=== PATIENT | male | born 1995 | race Caucasian/White ===

== ENCOUNTER 2018-07-02 14:46 | Emergency (ER) | payer SELFPAY ==
[2018-07-02 14:57] VITALS: BP 136/90; PULSE 90; RESP 14; TEMP 36.8; O2SAT 99
--- NOTE | 2018-07-02 15:12 | ED.ALLEREA ---
HPI - Allergic Reaction <CORIN Sykes Last Filed: 07/02/18 19:57> General Chief complaint: Allergic Reaction Stated complaint: hives all over body Time Seen by Provider: 07/02/18 15:12 Source: patient Mode of arrival: ambulatory Limitations: no limitations History of Present Illness HPI narrative: This 22-year-old male comes in due to recurrent hives for the last 3 or 4 days, not acutely worse today. He states that this is the 2nd time he has had this in about a month. Has been trying to make do with taking Benadryl, but states this is quite uncomfortable. 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 He is also allergic to for and exposed to a friend's dog recently, or states that it could be stress. He states that this started on his cheeks and hands 1st, and spread to the rest of his face, also has some on his arms. He states he does not have any rash on his trunk, groin or legs. He has an old rash on the left foot that has been there for years, unchanged. He does have a history of some mild reactive airways only when he is ill, but states he has not had any wheeze, dyspnea or chest tightness, maybe occasional mild feeling of air hunger that he thinks is due to Benadryl. He also states that the Benadryl makes him sleepy during the day. He states that the rash pierce at times as well as itches. He has not had any swelling in his lips or difficulty swallowing. Denies any other complaints on systems review Related Data Previous Rx's Medication Instructions Recorded prednisone 40 mg PO DAILY 21 Days #25 tab 07/02/18 Review of Systems <CORIN Sykes Last Filed: 07/02/18 19:57> Review of Systems All systems reviewed & are unremarkable except as noted in HPI and below PFSH <Peggy Pruitt PA-C - Last Filed: 07/02/18 19:57> Comment: Exam <CORIN Sykes Last Filed: 07/02/18 19:57> Narrative Exam Narrative: GENERAL APPEARANCE: Patient sitting comfortably, in no distress. EYES: PERRL, EOMI. ORAL CAVITY: Normal oropharynx. THROAT: Clear. NECK/THYROID: Neck supple LUNGS: Clear to auscultation bilaterally HEART: RRR without murmur, nl S1, S2, no S3 or S4. DERMATOLOGIC: Erythematous maculopapular exanthem most concentrated on the face, anterior neck, and hands, with papules and wheals ranging in size from 1-2 to 10mm. There is also a smaller concentration of papules on the anterior biceps and LEs on the lateral triceps. None on the forearms. None on the trunk or legs. There is a dry, dusky, scaly exanthem on the left foot dorsum, none on the right Initial Vital Signs Initial Vital Signs: Vital Signs Temperature 98.3 F 07/02/18 14:57 Pulse Rate 90 07/02/18 14:57 Respiratory Rate 14 07/02/18 14:57 Blood Pressure 136/90 07/02/18 14:57 Pulse Oximetry 99 07/02/18 14:57 <Lawson Brown MD - Last Filed: 07/02/18 20:27> Initial Vital Signs Initial Vital Signs: Vital Signs Temperature 98.3 F 07/02/18 14:57 Pulse Rate 90 07/02/18 14:57 Respiratory Rate 14 07/02/18 14:57 Blood Pressure 136/90 07/02/18 14:57 Pulse Oximetry 99 07/02/18 14:57 Course <Peggy Pruitt PA-C - Last Filed: 07/02/18 19:57> Vital Signs - 8 hr 07/02/18 14:57 Temperature 98.3 F Pulse Rate 90 Respiratory Rate 14 Blood Pressure 136/90 Pulse Oximetry 99 <Lawson Brown MD - Last Filed: 07/02/18 20:27> Vital Signs - 8 hr 07/02/18 14:57 Temperature 98.3 F Pulse Rate 90 Respiratory Rate 14 Blood Pressure 136/90 Pulse Oximetry 99 Discharge Plan Departure Patient Disposition: Home Clinical Impression: Urticaria Discharge Date/Time: 07/02/18 15:42 Interventions: ED Discharge Assessment Last Done: 07/02/18 15:41 Instructions: DI for Hives Activity Restrictions/Additional Instructions: Please return if you have acutely worsening symptoms or new symptoms such as difficulty breathing as we talked about today. Please start the prednisone as soon as you pick it up to help with the inflammation and rash. Continue taking Benadryl at bedtime, and change to Zyrtec ([id number] to cetirizine, 10 mg) 1-2 tabs during the day for itching. Avoid hot water or hot showers. A tepid oatmeal bath and calamine lotion may be helpful. Please call dermatology here in town for an appointment for follow-up for this as well as the rash on your foot that has been there for a long time. [facility] sees patients in [facility] if Dr. Franklin is not on your new insurance. A referral to an can line operator may be helpful as well Prescriptions: New prednisone 20 mg tablet 40 mg PO DAILY 21 Days Qty: 25 RF: 0 Referrals: Michelle Franklin MD [Physician] - <Lawson Brown MD - Last Filed: 07/02/18 20:27> Cosign ED Attending Cosignature Attestation: I was present in the ER during this patient's evaluation. I was available for verbal consultation or to see the patient directly if requested. I agree with her evaluation and treatment plan.
--- NOTE | 2018-07-02 15:52 | ED_ITS ---
HPI - Allergic Reaction <CORIN Sykes Last Filed: 07/02/18 19:57> General Chief complaint: Allergic Reaction Stated complaint: hives all over body Time Seen by Provider: 07/02/18 15:12 Source: patient Mode of arrival: ambulatory Limitations: no limitations History of Present Illness HPI narrative: This 22-year-old male comes in due to recurrent hives for the last 3 or 4 days, not acutely worse today. He states that this is the 2nd time he has had this in about a month. Has been trying to make do with taking Benadryl, but states this is quite uncomfortable. 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 He is also allergic to for and exposed to a friend's dog recently, or states that it could be stress. He states that this started on his cheeks and hands 1st, and spread to the rest of his face, also has some on his arms. He states he does not have any rash on his trunk, groin or legs. He has an old rash on the left foot that has been there for years, unchanged. He does have a history of some mild reactive airways only when he is ill, but states he has not had any wheeze, dyspnea or chest tightness , maybe occasional mild feeling of air hunger that he thinks is due to Benadryl. He also states that the Benadryl makes him sleepy during the day. He states that the rash pierce at times as well as itches. He has not had any swelling in his lips or difficulty swallowing. Denies any other complaints on systems review Related Data Previous Rx's Medication Instructions Recorded prednisone 40 mg PO DAILY 21 Days #25 tab 07/02/18 Review of Systems <CORIN Sykes Last Filed: 07/02/18 19:57> Review of Systems All systems reviewed & are unremarkable except as noted in HPI and below PFSH <Peggy Pruitt PA-C - Last Filed: 07/02/18 19:57> Comment: Exam <CORIN Sykes Last Filed: 07/02/18 19:57> Narrative Exam Narrative: GENERAL APPEARANCE: Patient sitting comfortably, in no distress. EYES: PERRL, EOMI. ORAL CAVITY: Normal oropharynx. THROAT: Clear. NECK/THYROID: Neck supple LUNGS: Clear to auscultation bilaterally HEART: RRR without murmur, nl S1, S2, no S3 or S4. DERMATOLOGIC: Erythematous maculopapular exanthem most concentrated on the face , anterior neck, and hands, with papules and wheals ranging in size from 1-2 to 10mm. There is also a smaller concentration of papules on the anterior biceps and LEs on the lateral triceps. None on the forearms. None on the trunk or legs. There is a dry, dusky, scaly exanthem on the left foot dorsum, none on the right Initial Vital Signs Initial Vital Signs: Vital Signs Temperature 98.3 F 07/02/18 14:57 Pulse Rate 90 07/02/18 14:57 Respiratory Rate 14 07/02/18 14:57 Blood Pressure 136/90 07/02/18 14:57 Pulse Oximetry 99 07/02/18 14:57 <Lawson Brown MD - Last Filed: 07/02/18 20:27> Initial Vital Signs Initial Vital Signs: Vital Signs Temperature 98.3 F 07/02/18 14:57 Pulse Rate 90 07/02/18 14:57 Respiratory Rate 14 07/02/18 14:57 Blood Pressure 136/90 07/02/18 14:57 Pulse Oximetry 99 07/02/18 14:57 Course <Peggy Pruitt PA-C - Last Filed: 07/02/18 19:57> Vital Signs - 8 hr 07/02/18 14:57 Temperature 98.3 F Pulse Rate 90 Respiratory Rate 14 Blood Pressure 136/90 Pulse Oximetry 99 <Lawson Brown MD - Last Filed: 07/02/18 20:27> Vital Signs - 8 hr 07/02/18 14:57 Temperature 98.3 F Pulse Rate 90 Respiratory Rate 14 Blood Pressure 136/90 Pulse Oximetry 99 Discharge Plan Departure Patient Disposition: Home Clinical Impression: Urticaria Discharge Date/Time: 07/02/18 15:42 Interventions: ED Discharge Assessment Last Done: 07/02/18 15:41 Instructions: DI for Hives Activity Restrictions/Additional Instructions: Please return if you have acutely worsening symptoms or new symptoms such as difficulty breathing as we talked about today. Please start the prednisone as soon as you pick it up to help with the inflammation and rash. Continue taking Benadryl at bedtime, and change to Zyrtec ([id number] to cetirizine, 10 mg ) 1-2 tabs during the day for itching. Avoid hot water or hot showers. A tepid oatmeal bath and calamine lotion may be helpful. Please call dermatology here in town for an appointment for follow-up for this as well as the rash on your foot that has been there for a long time. [facility] sees patients in [facility] if Dr. Franklin is not on your new insurance. A referral to an bridge design engineer may be helpful as well Prescriptions: New prednisone 20 mg tablet 40 mg PO DAILY 21 Days Qty: 25 RF: 0 Referrals: Michelle Franklin MD [Physician] - <Lawson Brown MD - Last Filed: 07/02/18 20:27> Cosign ED Attending Cosignature Attestation: I was present in the ER during this patient's evaluation. I was available for verbal consultation or to see the patient directly if requested. I agree with her evaluation and treatment plan.
== END 2018-07-02 15:42 | disposition home or self-care (01) ==
PROVIDERS: Emergency Provider Internal Medicine
DX: L50.9 Urticaria, unspecified (principal)
CPT/HCPCS: 99282

== ENCOUNTER 2018-07-26 12:04 | Emergency (ER) | payer SELFPAY ==
[2018-07-26 12:06] VITALS: BP 147/86; PULSE 79; RESP 14; TEMP 36.4; O2SAT 98; BMI 21.9
--- NOTE | 2018-07-26 12:55 | ED.ALLEREA ---
HPI - Allergic Reaction <JENELLE Velazco - Last Filed: 07/26/18 16:57> General Chief complaint: Allergic Reaction Stated complaint: HIVES Time Seen by Provider: 07/26/18 12:30 Source: patient Mode of arrival: ambulatory Limitations: no limitations History of Present Illness HPI narrative: Patient presents with chief complaint of allergic reaction since Sunday the . He has been seen in the emergency department for this previously. He complains of hives and itching. He denies any acute shortness of breath or swelling of the mouth throat or tongue. He has been taking 5 tablets of Benadryl for the itching. He states he is trying to follow up with community relations specialist an manager audit as previously recommended. However he states he is having trouble getting in. 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 Related Data Previous Rx's Medication Instructions Recorded hydroxyzine HCl 50 mg PO TID-QID PRN #30 tab 07/26/18 prednisone 40 mg PO DAILY #10 tab 07/26/18 ranitidine HCl 150 mg PO DAILY #20 cap 07/26/18 Allergies Allergy/AdvReac Type Severity Reaction Status Date / Time No Known Drug Allergies Allergy Verified 07/26/18 12:10 Review of Systems <JENELLE Velazco - Last Filed: 07/26/18 16:57> Review of Systems GENERAL: Denies chills, fatigue, malaise, fever, sweats. HEENT: Denies sinus pain, ear pain, sore throat, difficulty swallowing, dizziness. RESPIRATORY: see HPI CARDIOVASCULAR: Denies chest pain, palpitations, orthopnea, edema, GASTROINTESTINAL: Denies nausea, vomiting, abdominal pain, diarrhea, constipation, melena. : Denies dysuria, frequency, incontinence, hematuria, urinary retention. MUSCULOSKELETAL: denies weakness, joint pain, or bony pain SKIN: See HPI NEUROLOGIC: Denies weakness, headache, numbness, change in speech, confusion, seizures, incoordination. PSYCHIATRIC: No concerning psychosocial issues. 12 point review of systems is negative except for those stated above Exam <JENELLE Velazco - Last Filed: 07/26/18 16:57> Narrative Exam Narrative: GENERAL: This is a well-nourished, well-developed patient, in mild distress. HEAD: Atraumatic. Normocephalic. No temporal or scalp tenderness. EYES: Pupils equal round and reactive. Extraocular motions intact. No scleral icterus. No injection or drainage. ENT: Nose without bleeding, purulent drainage or septal hematoma. Throat without erythema, tonsillar hypertrophy or exudate. Uvula midline. Airway patent. NECK: Trachea midline. No JVD or lymphadenopathy. Supple, nontender, no meningeal signs. CARDIOVASCULAR: Regular rate and rhythm without murmurs, gallops, or rubs. RESPIRATORY: Clear to auscultation. Breath sounds equal bilaterally. No wheezes, rales, or rhonchi. GASTROINTESTINAL: Abdomen soft, non-tender, nondistended. No hepato-splenomegaly, or palpable masses. No guarding. EXTREMITIES: No clubbing, cyanosis, or edema. No joint tenderness, effusion, or edema noted. BACK: Nontender without deformity or crepitance. No flank tenderness. NEURO: AOx3. SKIN: macular papular rash ranging from 1-2 mm up to 5-10 mm of wheals Noted over forearms biceps and face. No rash on scalp or trunk. Initial Vital Signs Initial Vital Signs: Vital Signs Temperature 97.5 F L 07/26/18 12:06 Pulse Rate 79 07/26/18 12:06 Respiratory Rate 14 07/26/18 12:06 Blood Pressure 147/86 H 07/26/18 12:06 Pulse Oximetry 98 07/26/18 12:06 <Evens Hong DO - Last Filed: 07/26/18 19:46> Initial Vital Signs Initial Vital Signs: Vital Signs Temperature 97.5 F L 07/26/18 12:06 Pulse Rate 79 07/26/18 12:06 Respiratory Rate 14 07/26/18 12:06 Blood Pressure 147/86 H 07/26/18 12:06 Pulse Oximetry 98 07/26/18 12:06 Course <WELLINGTON Velazco - Last Filed: 07/26/18 16:57> Orders Ordered: Discontinued Medications Prednisone (Deltasone) 40 mg PO NOW ONE Stop: 07/26/18 12:38 Last Admin: 07/26/18 13:02 Dose: 40 mg Ranitidine HCl (Zantac) 150 mg PO NOW ONE Stop: 07/26/18 12:38 Last Admin: 07/26/18 13:02 Dose: 150 mg Vital Signs - 8 hr 07/26/18 12:06 07/26/18 13:13 Temperature 97.5 F L Pulse Rate 79 84 Respiratory Rate 14 14 Blood Pressure 147/86 H Blood Pressure [Left Arm] 139/91 H Pulse Oximetry 98 100 <Evens Hong DO - Last Filed: 07/26/18 19:46> Orders Ordered: Discontinued Medications Prednisone (Deltasone) 40 mg PO NOW ONE Stop: 07/26/18 12:38 Last Admin: 07/26/18 13:02 Dose: 40 mg Ranitidine HCl (Zantac) 150 mg PO NOW ONE Stop: 07/26/18 12:38 Last Admin: 07/26/18 13:02 Dose: 150 mg Vital Signs - 8 hr 07/26/18 12:06 07/26/18 13:13 Temperature 97.5 F L Pulse Rate 79 84 Respiratory Rate 14 14 Blood Pressure 147/86 H Blood Pressure [Left Arm] 139/91 H Pulse Oximetry 98 100 MDM - Allergic Reaction <KRISTEN Velazoc-BAYRON - Last Filed: 07/26/18 16:57> Differential Diagnosis Differential diagnosis: Likely anaphylaxis, allergic reaction, contact dermatitis, viral enanthem and urticaria MDM Narrative Medical decision making narrative: Patient presents with chief complaint of allergic reaction. He has had several episodes of this recently. He has not followed up with his primary care provider or an manager audit or community relations specialist as suggested upon previous emergency department visit. He has no signs of anaphylaxis, no shortness of breath or trouble breathing. He is hemodynamically stable in the emergency department. He has been taking copious amounts of Benadryl most recently just prior to arrival. thus I elected to add an H2 keysha as ranitidine as well as some steroids. Given that the patient is not noticing a difference with Benadryl, I elected to try hydroxyzine. I discussed at length with the patient not taking more than prescribed as well as not combining Benadryl with Vistaril. I discussed that he should follow up with his primary care provider as discussed during a previous emergency department visit. patient had no questions or concerns upon discharge. I discussed at length return precautions for worsening shortness of breath or acute facial swelling. Discharge Plan Departure Patient Disposition: Home Clinical Impression: Urticaria Discharge Date/Time: 07/26/18 13:39 Interventions: ED Discharge Assessment Last Done: 07/26/18 13:38 Instructions: Urticaria (Alternative Therapy), DI for Hives Activity Restrictions/Additional Instructions: I am starting you on hydroxyzine, ranitidine and prednisone. Please take the hydroxyzine every 6 hr as needed for itching. Do not combine this with Benadryl. Please take the ranitidine as well as the prednisone every day. Please follow-up with skin care recommendations provided last time including using tepid water, non added soaps, and avoiding triggers. Please follow-up with primary care and/or an manager audit and or a community relations specialist as previously discussed. Prescriptions: New prednisone 20 mg tablet 40 mg PO DAILY Qty: 10 RF: 0 ranitidine HCl 150 mg capsule 150 mg PO DAILY Qty: 20 RF: 0 hydroxyzine HCl 50 mg tablet 50 mg PO TID-QID PRN (Reason: itching) Qty: 30 RF: 0 Stand Alone Forms: Work/School Restrictions <Evens Hong DO - Last Filed: 07/26/18 19:46> Cosign ED Attending Isiahature Attestation: I was immediately available in the department for consultation. Documentation has been reviewed. I agree with assessment and plan.
--- NOTE | 2018-07-26 12:58 | ED_ITS ---
HPI - Allergic Reaction <JENELLE Velazco - Last Filed: 07/26/18 16:57> General Chief complaint: Allergic Reaction Stated complaint: HIVES Time Seen by Provider: 07/26/18 12:30 Source: patient Mode of arrival: ambulatory Limitations: no limitations History of Present Illness HPI narrative: Patient presents with chief complaint of allergic reaction since Sunday the . He has been seen in the emergency department for this previously. He complains of hives and itching. He denies any acute shortness of breath or swelling of the mouth throat or tongue. He has been taking 5 tablets of Benadryl for the itching. He states he is trying to follow up with health safety engineer an groutman as previously recommended. However he states he is having trouble getting in. 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 Related Data Previous Rx's Medication Instructions Recorded hydroxyzine HCl 50 mg PO TID-QID PRN #30 tab 07/26/18 prednisone 40 mg PO DAILY #10 tab 07/26/18 ranitidine HCl 150 mg PO DAILY #20 cap 07/26/18 Allergies Allergy/AdvReac Type Severity Reaction Status Date / Time No Known Drug Allergies Allergy Verified 07/26/18 12:10 Review of Systems <JENELLE Velazco - Last Filed: 07/26/18 16:57> Review of Systems GENERAL: Denies chills, fatigue, malaise, fever, sweats. HEENT: Denies sinus pain, ear pain, sore throat, difficulty swallowing, dizziness. RESPIRATORY: see HPI CARDIOVASCULAR: Denies chest pain, palpitations, orthopnea, edema, GASTROINTESTINAL: Denies nausea, vomiting, abdominal pain, diarrhea, constipation, melena. : Denies dysuria, frequency, incontinence, hematuria, urinary retention. MUSCULOSKELETAL: denies weakness, joint pain, or bony pain SKIN: See HPI NEUROLOGIC: Denies weakness, headache, numbness, change in speech, confusion, seizures, incoordination. PSYCHIATRIC: No concerning psychosocial issues. 12 point review of systems is negative except for those stated above Exam <JENELLE Velazco - Last Filed: 07/26/18 16:57> Narrative Exam Narrative: GENERAL: This is a well-nourished, well-developed patient, in mild distress. HEAD: Atraumatic. Normocephalic. No temporal or scalp tenderness. EYES: Pupils equal round and reactive. Extraocular motions intact. No scleral icterus. No injection or drainage. ENT: Nose without bleeding, purulent drainage or septal hematoma. Throat without erythema, tonsillar hypertrophy or exudate. Uvula midline. Airway patent. NECK: Trachea midline. No JVD or lymphadenopathy. Supple, nontender, no meningeal signs. CARDIOVASCULAR: Regular rate and rhythm without murmurs, gallops, or rubs. RESPIRATORY: Clear to auscultation. Breath sounds equal bilaterally. No wheezes , rales, or rhonchi. GASTROINTESTINAL: Abdomen soft, non-tender, nondistended. No hepato-splenomegaly , or palpable masses. No guarding. EXTREMITIES: No clubbing, cyanosis, or edema. No joint tenderness, effusion, or edema noted. BACK: Nontender without deformity or crepitance. No flank tenderness. NEURO: AOx3. SKIN: macular papular rash ranging from 1-2 mm up to 5-10 mm of wheals Noted over forearms biceps and face. No rash on scalp or trunk. Initial Vital Signs Initial Vital Signs: Vital Signs Temperature 97.5 F L 07/26/18 12:06 Pulse Rate 79 07/26/18 12:06 Respiratory Rate 14 07/26/18 12:06 Blood Pressure 147/86 H 07/26/18 12:06 Pulse Oximetry 98 07/26/18 12:06 <Evens Hong DO - Last Filed: 07/26/18 19:46> Initial Vital Signs Initial Vital Signs: Vital Signs Temperature 97.5 F L 07/26/18 12:06 Pulse Rate 79 07/26/18 12:06 Respiratory Rate 14 07/26/18 12:06 Blood Pressure 147/86 H 07/26/18 12:06 Pulse Oximetry 98 07/26/18 12:06 Course <WELLINGTON Velazco - Last Filed: 07/26/18 16:57> Orders Ordered: Discontinued Medications Prednisone (Deltasone) 40 mg PO NOW ONE Stop: 07/26/18 12:38 Last Admin: 07/26/18 13:02 Dose: 40 mg Ranitidine HCl (Zantac) 150 mg PO NOW ONE Stop: 07/26/18 12:38 Last Admin: 07/26/18 13:02 Dose: 150 mg Vital Signs - 8 hr 07/26/18 12:06 07/26/18 13:13 Temperature 97.5 F L Pulse Rate 79 84 Respiratory Rate 14 14 Blood Pressure 147/86 H Blood Pressure [Left Arm] 139/91 H Pulse Oximetry 98 100 <Evens Hong DO - Last Filed: 07/26/18 19:46> Orders Ordered: Discontinued Medications Prednisone (Deltasone) 40 mg PO NOW ONE Stop: 07/26/18 12:38 Last Admin: 07/26/18 13:02 Dose: 40 mg Ranitidine HCl (Zantac) 150 mg PO NOW ONE Stop: 07/26/18 12:38 Last Admin: 07/26/18 13:02 Dose: 150 mg Vital Signs - 8 hr 07/26/18 12:06 07/26/18 13:13 Temperature 97.5 F L Pulse Rate 79 84 Respiratory Rate 14 14 Blood Pressure 147/86 H Blood Pressure [Left Arm] 139/91 H Pulse Oximetry 98 100 MDM - Allergic Reaction <KRISTEN Velazco-BAYRON - Last Filed: 07/26/18 16:57> Differential Diagnosis Differential diagnosis: Likely anaphylaxis, allergic reaction, contact dermatitis, viral enanthem and urticaria MDM Narrative Medical decision making narrative: Patient presents with chief complaint of allergic reaction. He has had several episodes of this recently. He has not followed up with his primary care provider or an groutman or health safety engineer as suggested upon previous emergency department visit. He has no signs of anaphylaxis, no shortness of breath or trouble breathing. He is hemodynamically stable in the emergency department. He has been taking copious amounts of Benadryl most recently just prior to arrival. thus I elected to add an H2 keysha as ranitidine as well as some steroids. Given that the patient is not noticing a difference with Benadryl, I elected to try hydroxyzine. I discussed at length with the patient not taking more than prescribed as well as not combining Benadryl with Vistaril. I discussed that he should follow up with his primary care provider as discussed during a previous emergency department visit. patient had no questions or concerns upon discharge. I discussed at length return precautions for worsening shortness of breath or acute facial swelling. Discharge Plan Departure Patient Disposition: Home Clinical Impression: Urticaria Discharge Date/Time: 07/26/18 13:39 Interventions: ED Discharge Assessment Last Done: 07/26/18 13:38 Instructions: Urticaria (Alternative Therapy), DI for Hives Activity Restrictions/Additional Instructions: I am starting you on hydroxyzine, ranitidine and prednisone. Please take the hydroxyzine every 6 hr as needed for itching. Do not combine this with Benadryl. Please take the ranitidine as well as the prednisone every day. Please follow-up with skin care recommendations provided last time including using tepid water, non added soaps, and avoiding triggers. Please follow-up with primary care and/or an groutman and or a health safety engineer as previously discussed. Prescriptions: New prednisone 20 mg tablet 40 mg PO DAILY Qty: 10 RF: 0 ranitidine HCl 150 mg capsule 150 mg PO DAILY Qty: 20 RF: 0 hydroxyzine HCl 50 mg tablet 50 mg PO TID-QID PRN (Reason: itching) Qty: 30 RF: 0 Stand Alone Forms: Work/School Restrictions <Evens Hong DO - Last Filed: 07/26/18 19:46> Cosign ED Attending [place] Attestation: I was immediately available in the department for consultation. Documentation has been reviewed. I agree with assessment and plan.
[2018-07-26] MEDS: predniSONE 20 MG TABLET 40 MG PO (13:02)
[2018-07-26 13:13] VITALS: BP 139/91; PULSE 84; RESP 14; O2SAT 100
== END 2018-07-26 13:39 | disposition home or self-care (01) ==
PROVIDERS: Emergency Provider Nurse Practitioner Family
DX: L50.9 Urticaria, unspecified (principal)
CPT/HCPCS: 99282; 99283

== ENCOUNTER 2018-10-13 20:51 | Emergency (ER) | payer SELFPAY ==
[2018-10-13 21:06] VITALS: BP 132/79; PULSE 110; RESP 18; TEMP 36.4; O2SAT 98; BMI 23.1
--- NOTE | 2018-10-13 22:46 | ED.WOUNDLAC ---
HPI - Wound/Laceration General Chief Complaint: Wound/Laceration Stated Complaint: states ulcers on his feet, past couple of weeks Time Seen by Provider: 10/13/18 22:30 Source: patient Mode of arrival: ambulatory Limitations: no limitations History of Present Illness HPI narrative: 23-year-old male with history of smoking and alcohol abuse presents with a chief complaint worsening painful rash on L foot. He's been diagnosed with athlete's foot and has been using OTC meds with some improvement until the past few days which have resulted in increasing pain and swelling on dorsum of left foot with some skin breakdown. He denies systemic findings like fever, chills, N/V. The area of infection is isolated to the dorsum of L foot Onset (ago): week(s) Extremity Location: Left: foot Related Data Home Medications Medication Instructions Recorded Confirmed Benadryl 2 cap 10/13/18 ibuprofen 10/13/18 Previous Rx's Medication Instructions Recorded hydroxyzine HCl 50 mg PO TID-QID PRN #30 tab 07/26/18 prednisone 40 mg PO DAILY #10 tab 07/26/18 ranitidine HCl 150 mg PO DAILY #20 cap 07/26/18 doxycycline monohydrate 100 mg PO BID 10 Days #20 cap 10/13/18 Allergies Allergy/AdvReac Type Severity Reaction Status Date / Time No Known Drug Allergies Allergy Verified 10/13/18 21:09 Review of Systems Review of Systems All systems reviewed & are unremarkable except as noted in HPI and below Constitutional Denies chills, Denies fever(s), Denies lethargy and Denies weakness Eyes Denies change in vision, Denies eye discharge, Denies irritation and Denies loss of vision ENT Ears, Nose, Mouth, and Throat: Denies change in voice, Denies neck pain and Denies sore throat Cardiovascular Denies chest pain, Denies irregular heart rhythm, Denies lightheadedness, Denies palpitations, Denies dyspnea, Denies dyspnea on exertion and Denies orthopnea Respiratory Denies cough, Denies dyspnea, Denies dyspnea on exertion and Denies wheezing Gastrointestinal Gastrointestinal: Denies abdominal pain, Denies change in bowel habits, Denies diarrhea, Denies nausea and Denies vomiting Genitourinary Denies hematuria, Denies flank pain, Denies urinary incontinence and Denies urinary urgency Musculoskeletal Denies neck pain Integumentary/Breasts Denies pruritus, Reports erythema, Denies rash, Reports skin pain, Reports skin swelling, Reports skin ulcer, Reports sores and Reports wounds Neurologic Denies confusion, Denies loss of vision and Denies weakness Psychiatric Denies anxiety, Denies confusion, Denies depression, Denies homicidal ideation and Denies suicidal ideation Endocrine Denies palpitations Hematologic/Lymphatic Denies easy bruising Allergic/Immunologic Denies wheezing [facility] Medical History Reactive airways dysfunction syndrome (Chronic) Urticaria (Chronic) Social History Smoking Status: Current some day smoker alcohol intake: current Exam Narrative Exam Narrative: GEN: AOx3 and in mild distress EYES: Pupils are equal, round, and reactive to light and accommodation. Extraoccular muscles are intact bilaterally. There is no subconjunctival hemorrhage or exudate. CHEST: Lungs are clear to auscultation bilaterally and free of wheezes, rales, or rhonchi. Heart rate is regular rhythm, there are no murmurs, clicks, rubs, or gallops. There is no chest wall tenderness. ABD: Abdomen is soft and nontender. There is no guarding or rebound. Bowel sounds are normal in all 4 quadrants. There is no mass or organomegaly. EXT: Full painless ROM of all extremities with no loss of sensation or strength. SKIN: Dorsum L foot with erythema, swelling, and some tenderness. There are small areas of skin breakdown. No induration, fluctuance or other findings consistent with abscess. Area between toes and some on the dorsum is red, beefy and moist in appearance Initial Vital Signs Initial Vital Signs: Vital Signs Temperature 97.6 F 10/13/18 21:06 Pulse Rate 110 H 10/13/18 21:06 Respiratory Rate 18 10/13/18 21:06 Blood Pressure 132/79 10/13/18 21:06 Pulse Oximetry 98 10/13/18 21:06 Course Orders Ordered: Discontinued Medications Doxycycline Hyclate (Vibramycin) 100 mg PO NOW ONE Stop: 10/13/18 22:54 Last Admin: 10/13/18 22:56 Dose: 100 mg Vital Signs - 8 hr 10/13/18 23:09 Pulse Rate 93 H Respiratory Rate 20 Blood Pressure 143/83 H Pulse Oximetry 100 MDM - Wound/Laceration MDM Narrative Medical decision making narrative: no injury. no induration or fluctuance though abscess initially considered. Most likely a case of tinea pedis with resultant skin breakdown and bacterial superinfection Discharge Plan Departure Patient Disposition: Home Clinical Impression: Athlete's foot on left, Cellulitis of foot Discharge Date/Time: 10/13/18 23:09 Interventions: ED Discharge Assessment Last Done: 10/13/18 23:09 Instructions: DI for Cellulitis -- Adult, DI for Athlete's Foot Activity Restrictions/Additional Instructions: *You have been diagnosed with [ tinea peds with bacterial superinfection ] *What to do: *Take medications as directed including over the counter antifungal cream such as lotrimin or terbinafine *Follow up with your primary care provider in 2-3 days, call for an appointment. Let them know you were seen in the Emergency Department and that we ask that you be seen in follow up *Return to ER if you should have any new, worsening or concerning symptoms Prescriptions: New doxycycline monohydrate 100 mg capsule 100 mg PO BID 10 Days Qty: 20 RF: 0 No Action prednisone 20 mg tablet 40 mg PO DAILY Qty: 10 RF: 0 ranitidine HCl 150 mg capsule 150 mg PO DAILY Qty: 20 RF: 0 hydroxyzine HCl 50 mg tablet 50 mg PO TID-QID PRN (Reason: itching) Qty: 30 RF: 0 ibuprofen 600 mg Tablet RF: 0 Benadryl 2 cap RF: 0 Referrals: Juan Luis Blanc MD [Physician] -
[2018-10-13] MEDS: DOXYCYCLINE HYCLATE 100 MG TABLET PO (22:56)
[2018-10-13 23:09] VITALS: BP 143/83; PULSE 93; RESP 20; O2SAT 100
== END 2018-10-13 23:09 | disposition home or self-care (01) ==
PROVIDERS: Emergency Provider Emergency Medicine
DX: B35.3 Tinea pedis (principal); L03.116 Cellulitis of left lower limb
CPT/HCPCS: 99283

== ENCOUNTER 2020-05-24 13:19 | Emergency (ER) | payer SELFPAY ==
[2020-05-24 13:33] VITALS: BP 136/77; PULSE 99; RESP 16; TEMP 37.2; O2SAT 97; BMI 25.5
[2020-05-24] MEDS: TET,DIPH,PERTUSS(ACELL),VAC/PF 0.5 ML SYRINGE IM (15:41)
--- NOTE | 2020-05-24 17:01 | ED.WOUNDLAC ---
HPI - Wound/Laceration <COURTNEY SalgadoP - Last Filed: 05/25/20 00:01> General Chief Complaint: Wound/Laceration Stated Complaint: fell injury to nose Time Seen by Provider: 05/24/20 16:41 Source: patient Mode of arrival: Ambulatory Limitations: no limitations History of Present Illness HPI narrative: This is a 24-year-old male, smoker, who presents to ED with chief complain of small laceration on nasal bridge which he sustained at 1-2 am this morning after he had some alcohol intake and accidentally tripped on carpet and fall on the corner of a wooden table. Patient denies losing consciousness, vision change, severe headache, breathing difficulty through the nose, neck discomfort. Patient reports bleeding from laceration finally stopped at 10:00 a.m. today. Unknown last tetanus immunization. Patient reports he had use cool pack on affected site which helped with swelling. Patient reports after today's visit to ED he is planning to attend AA meetings. Related Data Home Medications Medication Instructions Recorded Confirmed diphenhydramine HCl 25 mg capsule 50 mg PO BID PRN cap 02/11/20 02/18/20 Previous Rx's Medication Instructions Recorded cetirizine 10 mg tablet 10 mg PO BID #60 tab 02/11/20 Allergies Allergy/AdvReac Type Severity Reaction Status Date / Time No Known Drug Allergies Allergy Verified 02/18/20 16:40 Review of Systems <Talon StaceyCOURTNEY BrownP - Last Filed: 05/25/20 00:01> Review of Systems Narrative: General: Denies fever, chills, fatigue, malaise, sweats. HEENT: See HPI Respiratory: Denies dyspnea, cough, wheezing, hemoptysis, sputum. Cardiovascular: Denies chest pain, palpitations, orthopnea, edema. Gastrointestinal: Denies nausea, vomiting, abdominal pain, diarrhea, constipation, melena. : Denies dysuria, frequency, incontinence, hematuria, urinary retention. Musculoskeletal: Denies weakness, joint pain or bony pain. Skin: See HPI Neurologic: Denies weakness, headache, numbness, change in speech, confusion, seizures, incoordination. Psychiatric: No concerning psychosocial issues. 12-point review of systems is negative except for those stated above. Patient History <PINEDA Salgdao - Last Filed: 05/25/20 00:01> Medical History Cellulitis of left lower extremity (Acute) Contact dermatitis (Acute) Eczema (Acute 2019) Reactive airways dysfunction syndrome (Chronic) Urticaria (Chronic) Social History Smoking Status: Current some day smoker alcohol intake: current substance use type: former substance user Smoking Status: Current some day smoker alcohol intake frequency: a few times a week Substance Use Type: marijuana Exam <PINEDA Salgado - Last Filed: 05/25/20 00:01> Narrative Exam Narrative: General appearance: well developed, well nourished, in no acute distress. Head: normocephalic, atraumatic, no step-offs, no scalp lesions, non-tender. ENT: Bilateral auditory canals and tympanic membranes clear without hemotympanum or drainage. Hearing grossly intact. No nasal bleeding, purulent discharge, septal hematoma or obvious deviation. Turbinate without erythema or swelling. Mild swelling around the nasal bridge and small laceration. Facial sinuses nontender to palpate. Mucous membrane moist, no mucosal lesion. Throat without erythema, tonsillar hypertrophy or exudate. Uvula in midline, airway patent. Neck/Thyroid: neck supple, full range of motion, no visible masses or meningeal signs. No JVD, non-tender without lymphadenopathy. Skin: 1.5 flap like laceration on nasal bridge. Warm and dry and appropriate color for ethnicity. Heart: no clubbing, no cyanosis, no edema. S1 and S2 normal. RRR w/o murmurs, clicks, or bruits. Lungs: Breathing even and unlabored. No stridor. No accessory muscles used. Able to speak in full sentences. Chest: normal shape and expansion. Abdomen: non-obese, non-distended. Neurologic: alert and oriented. Cognitive exam, EQUIPMENT CLEANER and PNS grossly intact on informal exam. Psych: good eye contact, normal affect. Initial Vital Signs Initial Vital Signs: Vital Signs Temperature 99.0 F 05/24/20 13:33 Pulse Rate 99 H 05/24/20 13:33 Respiratory Rate 16 05/24/20 13:33 Blood Pressure 136/77 05/24/20 13:33 Pulse Oximetry 97 05/24/20 13:33 <Jf Sr MD - Last Filed: 05/25/20 07:46> Initial Vital Signs Initial Vital Signs: Vital Signs Temperature 99.0 F 05/24/20 13:33 Pulse Rate 99 H 05/24/20 13:33 Respiratory Rate 16 05/24/20 13:33 Blood Pressure 136/77 05/24/20 13:33 Pulse Oximetry 97 05/24/20 13:33 Procedures <Talon WaltersPINEDA Daniels - Last Filed: 05/25/20 00:01> Laceration Repair Laceration 1: Site: face (on nasal bridge) Size (cm): 1.5 Description: linear, flap and irregular Depth: simple, single layer Local Anesthetic: lidocaine 1% and with bicarb Amount of anesthesia used (mL): 0.5 Pre-repair: wound explored and irrigated extensively Skin layer closed with: nylon Size (cm): 5-0 Number of sutures: 3 Scores <PINEDA Salgado - Last Filed: 05/25/20 00:01> GCS Fenwick coma scale eye opening: Spontaneous Fenwick coma scale verbal response: Orientated Alex coma scale motor response: Obey commands Alex coma scale total score: 15 Nexus Score for C-Spine Focal Neurologic deficit present: No Midline spinal tenderness present: No Altered level of conciousness present: No Intoxication present: No Distracting Injury Present: Yes (nasal laceration) Nexus Criteria for C-spine: 1 Course <PINEDA Salgado - Last Filed: 05/25/20 00:01> Orders Ordered: Discontinued Medications Bacitracin (Bacitracin) 1 applic TOP NOW ONE Stop: 05/24/20 16:48 Last Admin: 05/24/20 18:14 Dose: 1 applic Documented by: ARTEMIO Diphtheria/Tetanus/Acell Pertussis (Adacel) 0.5 ml IM .ONCE ONE Stop: 05/24/20 13:38 Last Admin: 05/24/20 15:41 Dose: 0.5 ml Documented by: ARTEMIO Lidocaine/Sodium Bicarbonate (Buffered Lidocaine 10 Ml Syr) 10 ml INJ NOW ONE Stop: 05/24/20 16:48 Last Admin: 05/24/20 18:14 Dose: 10 ml Documented by: ARTEMIO Vital Signs Vital signs: Vital Signs - 8 hr 08/10/20 18:23 Pulse Rate 88 Respiratory Rate 18 Blood Pressure 130/85 Pulse Oximetry 97 <Jf Sr MD - Last Filed: 05/25/20 07:46> Orders Ordered: Discontinued Medications Bacitracin (Bacitracin) 1 applic TOP NOW ONE Stop: 05/24/20 16:48 Last Admin: 05/24/20 18:14 Dose: 1 applic Documented by: ARTEMIO Diphtheria/Tetanus/Acell Pertussis (Adacel) 0.5 ml IM .ONCE ONE Stop: 05/24/20 13:38 Last Admin: 05/24/20 15:41 Dose: 0.5 ml Documented by: ARTEMIO Lidocaine/Sodium Bicarbonate (Buffered Lidocaine 10 Ml Syr) 10 ml INJ NOW ONE Stop: 05/24/20 16:48 Last Admin: 05/24/20 18:14 Dose: 10 ml Documented by: ARTEMIO Vital Signs Vital signs: Vital Signs - 8 hr 05/24/20 18:23 Pulse Rate 88 Respiratory Rate 18 Blood Pressure 130/85 Pulse Oximetry 97 MDM - Wound/Laceration <PINEDA Salgado - Last Filed: 05/25/20 00:01> Differential Diagnosis Differential diagnosis: Likely laceration and other (nasal fracture, closed head injury) Medical Records Attestation: I reviewed the patient's medical records. [place] Narrative Medical decision making narrative: This is a 24 year male who has 1.5 cm laceration on nsasal bridge after he accidentally tripped on a carpet and hit his face on the edge of wooden table at 1 to 2 a.m. after he had some alcoholic drinks. Patient denies losing consciousness, mid cervical tenderness, headache, vision change, or seizure. Patient denies difficulty breathing through his nose and very mild swelling on injury site without overt deformity and physical exam was unremarkable. I discussed with patient that nasal fracture is not likely ruled out b physical exam but requiring facial bone CT. Treatment approach is agreements similar with a patient has small fracture or not and and patient deferred CT test at this time. Citizen Of [place] C spine rule with low risk and deferred CT neck test. Laceration has been repaired by 3 sutures. Wound care at home, wound recheck, return precautions including signs and symptoms for infection discussed with patient and he verbalized understanding and agreed with treatment plan. Discharge Plan Departure Patient Disposition: Home Clinical Impression: Laceration of face Qualifiers: Encounter type: initial encounter Qualified Code(s): S01.81XA - Laceration without foreign body of other part of head, initial encounter CHI (closed head injury) Qualifiers: Encounter type: initial encounter Qualified Code(s): S09.90XA - Unspecified injury of head, initial encounter Discharge Date/Time: 05/24/20 18:23 Instructions: DI for Laceration Repair, DI for Closed Head Injury Activity Restrictions/Additional Instructions: You have been diagnosed with [1.5 laceration on nasal bridge and closed head injury. Laceration has been repaired by 3 sutures.]. What to do: *Take your medications as directed. You can take [id number] Tylenol and or Motrin as needed for discomfort. Please do not get your wound soaked in the water until suture removal. Keep your dressing intact for next 24 hrs. After then, you could remove your dressing, wash with soap and water. Pat dry with clean paper towel and dress it with antibiotic ointment. You can change dressing as needed and daily. Please monitor for signs and symptoms for infection such as increasing redness, swelling, warmth, pain, fever, purulent discharge. If this occurs, please return to ED or follow up with your primary care physician since your wound may be gotten infected. Please follow up with your primary care provider in 2-3 days for recheck wound. Your suture should be removed [ 5 ] days. This can be done by your primary provider, walk-in clinic or here in ED. Please keep your wound clean, dry and intact all times. Prescriptions: No Action diphenhydramine HCl [Benadryl] 25 mg capsule 50 mg PO BID PRNRF: 0 cetirizine 10 mg tablet 10 mg PO BID Qty: 60 RF: 0 Referrals: [facility] [Outside] <Jf Sr MD - Last Filed: 05/25/20 07:46> [facility]ign [facility] I was immediately available in the department for consultation. This documentation has been reviewed and I agree with assessment and plan. Supervised by Jf Sr MD
[2020-05-24] MEDS: LIDO 1%/SOD BICARB 8.4% (10ML) 10 ML SYRINGE INJ (18:14)
[2020-05-24] MEDS: BACITRACIN OINT 0.9 GM PCKT 1 APPLIC TOP (18:14)
[2020-05-24 18:23] VITALS: BP 130/85; PULSE 88; RESP 18; O2SAT 97
== END 2020-05-24 18:23 | disposition home or self-care (01) ==
PROVIDERS: Emergency Provider Nurse Practitioner Family
DX: S01.81XA Laceration without foreign body of other part of head, initial encounter (principal); S09.90XA Unspecified injury of head, initial encounter; W01.198A Fall on same level from slipping, tripping and stumbling with subsequent striking against other object, initial encounter; Z23 Encounter for immunization
CPT/HCPCS: 12011; 90471; 99283; 90715

== ENCOUNTER 2022-11-27 16:33 | Emergency (ER) | payer SELFPAY ==
[2022-11-27 16:40] VITALS: BP 146/86; PULSE 109; RESP 18; TEMP 36.6; O2SAT 95; BMI 24.3
--- NOTE | 2022-11-27 16:46 | ED.SKABFB ---
HPI - Skin/Abscess/Foreign Bdy General Chief complaint: Skin/Abscess/Foreign Body Stated complaint: RT. ARM INFECTION Time Seen by Provider: 11/27/22 16:36 Source: patient Mode of arrival: Ambulatory Limitations: no limitations History of Present Illness HPI narrative: 27-year-old male smoker with history of eczema presents with a chief complaint of some redness and discomfort of the skin overlying and new tattoo on his right forearm. He states that he has had some redness and irritation of a patch of skin in the flexor surface of his right elbow for quite some time this is not necessarily something new but states that he started developing redness overlying his new tattoo about 1 week ago. He initially had some drainage but that has since dried up. He denies any red streaks, pain in his elbow or elsewhere. He denies runny nose, sore throat or cough. He is had no fever or chills. Related Data Home Medications Medication Instructions Recorded Confirmed diphenhydramine HCl 25 mg capsule 50 mg PO BID PRN 02/11/20 11/22/22 (Benadryl) Previous Rx's Medication Instructions Recorded cetirizine 10 mg tablet 10 mg PO BID #60 tabs 02/11/20 triamcinolone acetonide 0.1 % 1 applic topical BID #30 grams 11/22/22 topical cream doxycycline hyclate 100 mg tablet 100 mg PO BID #20 tabs 11/27/22 Allergies Allergy/AdvReac Type Severity Reaction Status Date / Time No Known Drug Allergies Allergy Verified 11/27/22 16:40 Review of Systems Review of Systems Narrative: GENERAL: See HPI HEENT: Denies sinus pain, ear pain, sore throat, difficulty swallowing, dizziness. RESPIRATORY: Denies dyspnea, cough, wheezing, hemoptysis, sputum. CARDIOVASCULAR: Denies chest pain, palpitations, orthopnea, edema, GASTROINTESTINAL: Denies nausea, vomiting, abdominal pain, diarrhea, constipation, melena. : Denies dysuria, frequency, incontinence, hematuria, urinary retention. MUSCULOSKELETAL: denies weakness, joint pain, or bony pain SKIN: See HPI NEUROLOGIC: Denies weakness, headache, numbness, change in speech, confusion, seizures, incoordination. PSYCHIATRIC: No concerning psychosocial issues. 12 point review of systems is negative except for those stated above Patient History Medical History (Updated 02/13/23 @ 16:45 by Evens Hong DO) Cellulitis of left lower extremity Contact dermatitis Eczema (2019) Reactive airways dysfunction syndrome Urticaria Social History Smoking Status: Current some day smoker alcohol intake: current substance use type: former substance user Smoking Status: Current some day smoker alcohol intake frequency: 3 or more drinks per day Alcohol type: hard liquor Substance Use Type: marijuana and amphetamines Exam Narrative Exam Narrative: GEN: AOx3 and in mild distress EYES: Pupils are equal, round, and reactive to light and accommodation. Extraoccular muscles are intact bilaterally. There is no subconjunctival hemorrhage or exudate. CHEST: Lungs are clear to auscultation bilaterally and free of wheezes, rales, or rhonchi. Heart rate is regular rhythm, there are no murmurs, clicks, rubs, or gallops. There is no chest wall tenderness. ABD: Abdomen is soft and nontender. There is no guarding or rebound. Bowel sounds are normal in all 4 quadrants. There is no mass or organomegaly. EXT: Full painless ROM of all extremities with no loss of sensation or strength. SKIN: Dry scaling patch of skin on flexor surfaces of bilateral elbows in the lobe of left ear without induration, fluctuance or drainage. Right forearm with fresh tattoo and overlying erythema with minimal tenderness, no fluctuance, induration, lymphangitis or drainage. Initial Vital Signs Initial Vital Signs: Vital Signs Temperature 97.8 F 11/27/22 16:40 Pulse Rate 109 H 11/27/22 16:40 Respiratory Rate 18 11/27/22 16:40 Blood Pressure 146/86 H 11/27/22 16:40 Pulse Oximetry 95 11/27/22 16:40 Oxygen Delivery Method 11/27/22 16:40 Course Vital Signs Vital signs: Vital Signs - 8 hr 11/27/22 16:40 Temperature 97.8 F Pulse Rate 109 H Respiratory Rate 18 Blood Pressure 146/86 H Pulse Oximetry 95 Oxygen Delivery Method Room Air MDM - Skin/Abscess/Foreign Bdy MDM Narrative Medical decision making narrative: [27-year-old male smoker with pain and redness overlying new tattoo] Multiple etiologies for patient's symptoms considered including, but not limited to: [Cellulitis, abscess, tattoo reaction, bacterial superinfection versus other] Prior Charts reviewed: Prior ED visits note Patient's symptoms improved over duration of stay with above-stated therapies. Findings and discharge diagnosis discussed with patient/family followed by verbalization of understanding Return precautions discussed with patient/family whom verbalize understanding of diagnosis and plan Discharge Plan Departure Patient Disposition: Home Clinical Impression: Cellulitis, Tattoo reaction Instructions: DI for Cellulitis -- Adult Activity Restrictions/Additional Instructions: *You have been diagnosed with [right forearm cellulitis, possible test who reaction] *What to do: *Please continue to take your regular medications as directed. [ x] New medication prescriptions sent to your pharmacy: [[facility] ] [ ] New medication written as a paper prescription [ ] No new medications given *Please follow up with your primary care provider in 2-3 days, call for an appointment. Let them know you were seen in the Emergency Department and that we ask that you be seen in follow up. We will electronically transmit a record of today's note if your PCP is in our system *If you do not have a primary care provider please contact the [facility] Resource line at [phone]. They will ask some questions about your medical history and help get you set up with a doctor in the community. *Return to Emergency Department if you should have any new, worsening or concerning symptoms, such as [fever greater than 101 F, shaking chills, worsening pain, persistent vomiting or other bothersome symptoms] Prescriptions: New doxycycline hyclate 100 mg tablet 100 mg PO BID Qty: 20 0RF No Action triamcinolone acetonide 0.1 % cream 1 applic topical BID Qty: 30 0RF diphenhydramine HCl [Benadryl] 25 mg capsule 50 mg PO BID PRN cetirizine 10 mg tablet 10 mg PO BID Qty: 60 0RF Referrals: Miscellaneous,Doctor, MD [Primary Care Provider] - Stand Alone Forms: Patient Portal/API
== END 2022-11-27 17:04 | disposition home or self-care (01) ==
PROVIDERS: Emergency Provider Emergency Medicine
DX: L03.113 Cellulitis of right upper limb (principal); L92.3 Foreign body granuloma of the skin and subcutaneous tissue
CPT/HCPCS: 99281

== ENCOUNTER → 2022-11-29 15:40 | Outpatient (ROUT) | payer SELFPAY | PROVIDERS: Visit Provider Dermatology | DX: L23.9 Allergic contact dermatitis, unspecified cause (principal) | CPT/HCPCS: 87070; 87075; 87077; 87147; 87205 ==

== ENCOUNTER 2022-12-18 17:52 | Emergency (ER) | payer OTHER, MEDICAID, SELFPAY ==
[2022-12-18 18:22] VITALS: BP 153/76; PULSE 108; RESP 18; TEMP 36.1; O2SAT 99; BMI 24.3
--- NOTE | 2022-12-18 18:26 | DI.RAD.S_ITS ---
PROCEDURE: XR CHEST 1V INDICATIONS: chest pain TECHNIQUE: One view of the chest was acquired. COMPARISON: None. FINDINGS: Surgical changes and devices: None. Lungs and pleura: Lungs are clear. No pleural effusions or pneumothorax. Mediastinum: Mediastinal contours appear normal. Heart size is normal. Bones and chest wall: No suspicious bony lesions. Overlying soft tissues appear unremarkable. IMPRESSION: No acute cardiopulmonary disease. Dictated by: Jocelyn Hall M.D. on 12/18/2022 at 19:07 Approved by: Jocelyn Hall M.D. on 12/18/2022 at 19:07
[2022-12-18 18:52] LABS: Add Manual Diff / Slide Review NO; Basophils Absolute Auto 0 /uL (0-100); Basophils Percent Auto 0.5 % (0-2); Eosinophils Absolute Auto 0 /uL (0-450); Hematocrit 46.9 % (41-53); Hemoglobin 16.2 g/dL (13.5-17.5); Lymphocytes Absolute Auto 1500 /uL (1100-4500); Lymphocytes Percent Auto 19.1 % (25-40); Mean Corpuscular HGB Conc 34.5 % (30-36); Mean Corpuscular Hemoglobin 31.7 PG (26-34); Mean Corpuscular Volume 91.8 fL (80-100); Monocytes Absolute Auto 300 /uL (0-900); Neutrophils Absolute Auto 5800 /uL (1500-7000); Neutrophils Percent Auto 76.4 % (50-75); Platelet Count 305 X10^3/uL (150-400); Prothrombin Time 11.1 SECONDS (10.1-12.7); Red Blood Cell Count 5.11 X10^6/uL (4.5-5.9); Red Cell Distribution Width 13.9 % (11.6-14.8); White Blood Cell Count 7.7 X10^3/uL (4.5-11.0)
[2022-12-18 18:55] LABS: PTT Partial Thromboplastin Tim 30 SECONDS (26-36)
[2022-12-18 18:57] LABS: Alanine Aminotransferase 44 IU/L (<50); Albumin 4.9 g/dL (3.5-5.0); Albumin Globulin Ratio 1.2 (1.0-2.8); Alkaline Phosphatase 90 U/L (38-126); Aspartate Aminotransferase 44 IU/L (17-59); BUN Creatinine Ratio 17.8 (6-22); Bilirubin Total 0.6 mg/dL (0.2-1.3); Blood Urea Nitrogen 16 mg/dL (9-20); Calcium 9.1 mg/dL (8.4-10.2); Carbon Dioxide 24 mmol/L (22-32); Chloride 102 mmol/L (98-107); Creatine Kinase 103 U/L (55-170); Estimated Glomerular Filt Rate > 60 mL/min (>60); Ethanol (ETOH) 209 mg/dL; Globulin 4.1 g/dL (1.7-4.1); Glucose 110 mg/dL (70-100); HEMOLYSIS 18 (0-50); Lipase 97 U/L (23-300); Magnesium 1.8 mg/dL (1.6-2.3); Sodium 141 mmol/L (137-145)
[2022-12-18 19:08] LABS: Troponin I < 0.012 ng/mL (0.01-0.034)
[2022-12-18 19:11] LABS: CKMB % Relative Index 1.5 % (1.5-5.0); Creatine Kinase MB 1.55 ng/mL (<2.37)
[2022-12-18 20:30] VITALS: BP 143/91; PULSE 93; RESP 20; O2SAT 98
[2022-12-18 20:45] VITALS: PULSE 95; RESP 16; O2SAT 98
--- NOTE | 2022-12-18 20:57 | ED_ITS ---
HPI - Chest Pain General Chief Complaint: Chest Pain Stated Complaint: Anxiety, collapsed earlier twice, wants to detox Time Seen by Provider: 12/18/22 20:40 Source: patient Mode of arrival: Family Vehicle Limitations: no limitations History of Present Illness HPI narrative: Patient is a 27-year-old male. A known history of alcohol abuse. This is self reported by the patient. He has withdrawn from alcohol before but has never had a seizure. He states he drinks on a daily basis. He has a history of anxiety. He states he is here after he had an increase in his anxiety and collapsed on the floor after a walk. He denies any chest pain. No shortness of breath. He is here in the emergency department stating that he knows that all of his symptoms are alcohol induced and was interested in detox/rehab. The time of my evaluation patient states he is still feeling anxious post feeling better than what he was earlier in the day. He does smoke marijuana but denied any other drug use. Related Data Home Medications Medication Instructions Recorded Confirmed diphenhydramine HCl 25 mg capsule 50 mg PO BID PRN 02/11/20 11/22/22 (Benadryl) Previous Rx's Medication Instructions Recorded cetirizine 10 mg tablet 10 mg PO BID #60 tabs 02/11/20 triamcinolone acetonide 0.1 % 1 applic topical BID #30 grams 11/22/22 topical cream doxycycline hyclate 100 mg tablet 100 mg PO BID #20 tabs 11/27/22 Allergies Allergy/AdvReac Type Severity Reaction Status Date / Time No Known Drug Allergies Allergy Verified 11/27/22 16:40 Review of Systems Constitutional Constitutional: Reports system reviewed and no additional complaints, except as documented Cardiovascular Cardiovascular: Reports system reviewed and no additional complaints, except as documented Respiratory Respiratory: Reports system reviewed and no additional complaints, except as documented Gastrointestinal Gastrointestinal: Reports system reviewed and no additional complaints, except as documented Integumentary/Breasts Skin/Breast: Reports system reviewed and no additional complaints, except as documented Psychiatric Psychiatric: Reports system reviewed and no additional complaints, except as documented Patient History Medical History Cellulitis of left lower extremity Contact dermatitis Eczema (2019) Reactive airways dysfunction syndrome Urticaria Social History Smoking Status: Current some day smoker alcohol intake: current substance use type: former substance user Smoking Status: Current some day smoker alcohol intake frequency: 3 or more drinks per day Alcohol type: hard liquor Substance Use Type: marijuana and amphetamines Exam Initial Vital Signs Initial Vital Signs: Vital Signs Temperature 97 F L 12/18/22 18:22 Pulse Rate 108 H 12/18/22 18:22 Respiratory Rate 18 12/18/22 18:22 Blood Pressure 153/76 H 12/18/22 18:22 Pulse Oximetry 99 12/18/22 18:22 Oxygen Delivery Method Room Air 12/18/22 18:22 HENMT Head: normal to inspection Resp Effort & Inspection: normal respiratory effort Auscultation: clear to auscultation bilaterally Cardio Rate: regular rate Rhythm: regular rhythm Skin General: no rashes or lesions noted Neuro General: patient alert, patient awake and moves all extremities Extrem General: normal to inspection Course Orders Ordered: ED Orders 12/18/22 18:26 Consult to [employer] - [employer] Stat XR chest 1V Stat COVID19 -Nasal RAPID Stat Urine Drug Screen, Rapid Stat EKG-12 Lead Stat 12/18/22 18:30 Complete Blood Count AUTO DIFF Stat Comprehensive Metabolic Panel Stat Ethanol (ETOH) Stat Lipase Stat Magnesium Stat PTT Partial Thromboplastin [place] Stat Prothrombin Time INR Stat Troponin & CK Cardiac Panel Stat Vital Signs Vital signs: Vital Signs - 8 hr 12/18/22 18:22 12/18/22 20:30 Temperature 97 F L Pulse Rate 108 H 93 H Respiratory Rate 18 20 Blood Pressure 153/76 H 143/91 H Pulse Oximetry 99 98 Oxygen Delivery Method Room Air Room Air MDM - Chest Pain Lab Data Attestation: I reviewed the patient's lab results. 12/18/22 18:30 12/18/22 18:30 Labs: Lab Results 12/18/22 12/18/22 12/18/22 Range/Units 18:30 18:30 18:30 WBC 7.7 (4.5-11.0) X10^3/uL RBC 5.11 (4.5-5.9) X10^6/uL Hgb 16.2 (13.5-17.5) g/dL Hct 46.9 (41-53) % MCV 91.8 (80-100) fL MCH 31.7 (26-34) PG MCHC 34.5 (30-36) % RDW 13.9 (11.6-14.8) % Plt Count 305 (150-400) X10^3/uL Neut % (Auto) 76.4 H (50-75) % Lymph % (Auto) 19.1 L (25-40) % [place] % (Auto) 4.0 (3-14) % Eos % (Auto) 0.0 L (2-4) % Baso % (Auto) 0.5 (0-2) % Neut # (Auto) 5800 (7122-4649) /uL Lymph # (Auto) 1500 (1797-9249) /uL [place] # (Auto) 300 (0-900) /uL Eos # (Auto) 0 (0-450) /uL Baso # (Auto) 0 (0-100) /uL PT 11.1 (10.1-12.7) SECONDS INR 1.0 (0.9-1.3) APTT 30 (26-36) SECONDS Sodium 141 (137-145) mmol/L Potassium 4.0 (3.4-5.1) mmol/L Chloride 102 (98-107) mmol/L Carbon Dioxide 24 (22-32) mmol/L BUN 16 (9-20) mg/dL Creatinine 0.90 (0.66-1.25) mg/dL Estimated GFR > 60 (>60) mL/min BUN/Creatinine Ratio 17.8 (6-22) Glucose 110 H (70-100) mg/dL Calcium 9.1 (8.4-10.2) mg/dL Magnesium 1.8 (1.6-2.3) mg/dL Total Bilirubin 0.6 (0.2-1.3) mg/dL AST 44 (17-59) IU/L ALT 44 (<50) IU/L Alkaline Phosphatase 90 (38-126) U/L Total Creatine Kinase 103 (55-170) U/L CK-MB (CK-2) 1.55 (<2.37) ng/mL CK-MB (CK-2) Rel Index 1.5 (1.5-5.0) % Troponin I < 0.012 (0.01-0.034) ng/mL Total Protein 9.0 H (6.3-8.2) g/dL Albumin 4.9 (3.5-5.0) g/dL Globulin 4.1 (1.7-4.1) g/dL Albumin/Globulin Ratio 1.2 (1.0-2.8) Lipase 97 (23-300) U/L Ethyl Alcohol 209 H ( - 10) mg/dL Imaging Data Chest x-ray: Radiologist's Impression: PROCEDURE:? XR CHEST 1V ? INDICATIONS:? chest pain ? TECHNIQUE:? One view of the chest was acquired.? ? COMPARISON:? None. ? FINDINGS:? ? Surgical changes and devices:? None.? ? Lungs and pleura:? Lungs are clear.? No pleural effusions or pneumothorax.? ? Mediastinum:? Mediastinal contours appear normal.? Heart size is normal.? ? Bones and chest wall:? No suspicious bony lesions.? Overlying soft tissues appear unremarkable.? ? IMPRESSION:? No acute cardiopulmonary disease. ECG Data Attestation: I personally reviewed and interpreted this ECG as follows: Interpretation: Sinus tachycardia Ventricular rate 103 Normal axis Normal QRS Normal QTC No ST T wave changes MDM Narrative Medical decision making narrative: Patient is intoxicated however is alert oriented x3 and has a GCS of 15. Patient does drink on a daily basis. Was tachycardic but this is improved. He does report anxiety. Patient admits that all of his symptoms including the fainting which is happened to him in the past is related to his alcohol use. I suspect that he is correct with regard to this. I had a discussion with him regarding his alcohol use. We discussed detox/rehab. Offered to allow him to stay here in the emergency department overnight and talk with social work tomorrow and in the meantime work on trying to find him a detox. After this discussion the patient stated that he did not want to stay in the emergency department overnight. He states he felt comfortable going home. He stated that if in the morning he was still having quite a bit of anxiety and wanted to c onsider detox that he would return to the emergency department. Patient is here with family. He is discharged with his family. He was advised not to drive. He stated that he is lost his license and does not drive normally. He was given return precautions. He expressed understanding and agreement. Discharge Plan Departure Patient Disposition: Home Clinical Impression: Alcohol intoxication Instructions: Alcohol Use Disorder Activity Restrictions/Additional Instructions: No driving for the next 24 hours or in the future if you drink alcohol. Recommend you continue to take all of your medications as directed. If you would like further help with detox you can return to the emergency department for further evaluation. Prescriptions: No Action triamcinolone acetonide 0.1 % cream 1 applic topical BID Qty: 30 0RF diphenhydramine HCl [Benadryl] 25 mg capsule 50 mg PO BID PRN cetirizine 10 mg tablet 10 mg PO BID Qty: 60 0RF doxycycline hyclate 100 mg tablet 100 mg PO BID Qty: 20 0RF Referrals: Miscellaneous,Doctor, MD [Primary Care Provider] - Stand Alone Forms: Patient Portal/API
[2022-12-18 21:00] VITALS: BP 150/89; PULSE 98; RESP 18; O2SAT 97
== END 2022-12-18 21:20 | disposition home or self-care (01) ==
PROVIDERS: Emergency Medicine; Emergency Provider Emergency Medicine
DX: F10.129 Alcohol abuse with intoxication, unspecified (principal); Y90.7 Blood alcohol level of 200-239 mg/100 ml; R07.9 Chest pain, unspecified
CPT/HCPCS: 36415; 71045; 80053; 80320; 82550; 82553; 83690; 83735; 84484; 85025; 85610; 85730; 93005; 99283; 99284

== ENCOUNTER 2022-12-19 10:50 | Emergency (ER) | payer OTHER, MEDICAID, SELFPAY ==
[2022-12-19 11:12] VITALS: BP 159/84; PULSE 84; RESP 20; TEMP 36.7; O2SAT 98; BMI 25.0
[2022-12-19 12:09] LABS: Add Manual Diff / Slide Review NO; Basophils Absolute Auto 0 /uL (0-100); Basophils Percent Auto 0.3 % (0-2); Eosinophils Absolute Auto 0 /uL (0-450); Hematocrit 46.2 % (41-53); Hemoglobin 15.5 g/dL (13.5-17.5); Lymphocytes Absolute Auto 600 /uL (1100-4500); Lymphocytes Percent Auto 7.2 % (25-40); Mean Corpuscular HGB Conc 33.7 % (30-36); Mean Corpuscular Hemoglobin 31.3 PG (26-34); Mean Corpuscular Volume 92.9 fL (80-100); Monocytes Absolute Auto 800 /uL (0-900); Monocytes Percent Auto 8.4 % (3-14); Neutrophils Absolute Auto 7600 /uL (1500-7000); Neutrophils Percent Auto 84.1 % (50-75); Platelet Count 288 X10^3/uL (150-400); Red Blood Cell Count 4.97 X10^6/uL (4.5-5.9); Red Cell Distribution Width 13.6 % (11.6-14.8)
[2022-12-19 12:10] LABS: INR 1.1 (0.9-1.3); Prothrombin Time 12.2 SECONDS (10.1-12.7)
[2022-12-19 12:14] LABS: Alanine Aminotransferase 43 IU/L (<50); Albumin 4.9 g/dL (3.5-5.0); Albumin Globulin Ratio 1.3 (1.0-2.8); Alkaline Phosphatase 87 U/L (38-126); Aspartate Aminotransferase 43 IU/L (17-59); Bilirubin Total 1.5 mg/dL (0.2-1.3); Blood Urea Nitrogen 19 mg/dL (9-20); Calcium 9.1 mg/dL (8.4-10.2); Carbon Dioxide 28 mmol/L (22-32); Chloride 98 mmol/L (98-107); Estimated Glomerular Filt Rate > 60 mL/min (>60); Globulin 3.9 g/dL (1.7-4.1); Glucose 125 mg/dL (70-100); HEMOLYSIS 17 (0-50); Potassium 3.6 mmol/L (3.4-5.1); Sodium 137 mmol/L (137-145); Total Protein 8.8 g/dL (6.3-8.2)
[2022-12-19 12:15] LABS: Ethanol (ETOH) < 10 mg/dL
[2022-12-19] MEDS: ONDANSETRON 4 MG/2 ML INJ IV (12:19)
[2022-12-19] MEDS: LORazepam 2 MG/ML INJ IV (12:19)
[2022-12-19] MEDS: FOLIC ACID 1 MG TABLET PO (12:20)
[2022-12-19] MEDS: MULTIVITAMIN 1 TABLET 1 TAB PO (12:21)
--- NOTE | 2022-12-19 12:21 | ED.ALCOHOL ---
HPI - Alcohol General Chief Complaint: Toxicology Problem Stated Complaint: revisit from T-1 Time Seen by Provider: 12/19/22 12:02 Source: patient Mode of arrival: Ambulatory History of Present Illness HPI narrative: Patient here with girlfriend. Desires detox/stop drinking alcohol. Patient drinks a 5th of the rum/vodka a day. His last alcohol consumption was 2 days ago. Has had nausea vomiting. No seizures no fall no injury no hallucinations. No history of rehabilitation or detox centers. No history of admission for withdrawals. Denies any medical problems. Patient's CIWA score of 11 Related Data Home Medications Medication Instructions Recorded Confirmed diphenhydramine HCl 25 mg capsule 50 mg PO BID PRN 02/11/20 11/22/22 (Benadryl) Previous Rx's Medication Instructions Recorded cetirizine 10 mg tablet 10 mg PO BID #60 tabs 02/11/20 triamcinolone acetonide 0.1 % 1 applic topical BID #30 grams 11/22/22 topical cream doxycycline hyclate 100 mg tablet 100 mg PO BID #20 tabs 11/27/22 chlordiazepoxide HCl 25 mg capsule 25 mg PO TID PRN alcohol 12/19/22 withdrawal #9 caps ondansetron 4 mg disintegrating 4 mg PO Q6H PRN nausea and 12/19/22 tablet vomiting #14 tabs Allergies Allergy/AdvReac Type Severity Reaction Status Date / Time No Known Drug Allergies Allergy Verified 11/27/22 16:40 Review of Systems Review of Systems Narrative: GENERAL: negative chills, fatigue, malaise, fever, sweats. HEENT: negative sinus pain, ear pain, sore throat RESPIRATORY: negative dyspnea, cough CARDIOVASCULAR: negative chest pain, palpitations GASTROINTESTINAL: Positive nausea, vomiting, negative abdominal pain : negative dysuria, frequency, hematuria MUSCULOSKELETAL: negative muscle or bony pain SKIN: negative rash, skin lesions NEUROLOGIC: negative weakness, numbness, negative seizure PSYCH: Negative visual/auditory hallucinations, slightly anxious, is cooperative ROS Unobtainable: All systems reviewed & are unremarkable except as noted in HPI and below Patient History Medical History (Updated 12/19/22 @ 12:26 by Jf Sr MD) Cellulitis of left lower extremity Contact dermatitis Eczema (2019) Reactive airways dysfunction syndrome Urticaria Social History Smoking Status: Current some day smoker alcohol intake: current substance use type: former substance user Smoking Status: Current some day smoker alcohol intake frequency: 3 or more drinks per day Alcohol type: hard liquor Substance Use Type: marijuana and amphetamines Exam Narrative Exam Narrative: GENERAL: in no distress, not toxic not dyspneic HEAD: Normocephalic. EYES: Pupils equal round ENT: Mucous membranes moist. NECK: Trachea midline. CARDIOVASCULAR: Regular rate and rhythm without murmurs RESPIRATORY: Clear to auscultation. Breath sounds equal bilaterally. No wheezes, rales, or rhonchi. GASTROINTESTINAL: Abdomen soft, non-tender EXTREMITIES: No gross deformities. BACK: No flank tenderness. NEURO: AOx4. Clear speech steady self gait in hallway. SKIN: Warm and dry PSYCH: Is slightly anxious, is cooperative, not combative Initial Vital Signs Initial Vital Signs: Vital Signs Temperature 98.1 F 12/19/22 11:12 Pulse Rate 84 12/19/22 11:12 Respiratory Rate 20 12/19/22 11:12 Blood Pressure 159/84 H 12/19/22 11:12 Pulse Oximetry 98 12/19/22 11:12 Oxygen Delivery Method Room Air 12/19/22 11:12 Course Orders Ordered: Discontinued Medications Folic Acid (Folic Acid 1 Mg Tablet) 1 mg PO DAILY [facility] Folic Acid (Folic Acid 1 Mg Tablet) 1 mg PO DAILY [facility] Last Admin: 12/19/22 12:20 Dose: 1 mg Documented By: AMISH Magnesium Sulfate (Magnesium Sulfate) 2 gm in 50 mls @ 25 mls/hr IV NOW ONE Stop: 12/19/22 14:01 Last Infusion: 12/19/22 14:28 Dose: 0 mls/hr Documented By: CORRINE Co-signed By: FELICITA Admin: 12/19/22 12:38 Dose: 25 mls/hr Documented By: AMISH Co-signed By: CORRINE Lorazepam (Lorazepam 2 Mg/Ml Inj) 0 mg IV CIWAPRN PRN; Protocol PRN Reason: Alcohol Withdrawal Last Admin: 12/19/22 12:19 Dose: 2 mg Documented By: AMISH Multivitamins (Multivitamin 1 Tablet) 1 tab PO DAILY [facility] Multivitamins (Multivitamin 1 Tablet) 1 tab PO DAILY [facility] Last Admin: 12/19/22 12:21 Dose: 1 tab Documented By: AMISH Ondansetron HCl (Ondansetron 4 Mg/2 Ml Inj) 4 mg IV Q6HR PRN PRN Reason: Nausea And Vomiting Last Admin: 12/19/22 12:19 Dose: 4 mg Documented By: AMISH Thiamine HCl (Thiamine 100 Mg Tablet) 100 mg PO DAILY [facility] Stop: 12/23/22 09:01 Thiamine HCl (Thiamine 100 Mg Tablet) 100 mg PO DAILY [facility] Stop: 12/22/22 09:01 Last Admin: 12/19/22 12:50 Dose: Not Given Documented By: FELICITA Thiamine HCl (Thiamine 100 Mg Tablet) 100 mg PO NOW ONE Stop: 12/19/22 12:46 Last Admin: 12/19/22 12:39 Dose: 100 mg Documented By: AMISH Vital Signs Vital signs: Vital Signs - 8 hr 12/19/22 11:12 12/19/22 13:00 12/19/22 15:02 Temperature 98.1 F Pulse Rate 84 88 99 H Respiratory Rate 20 18 18 Blood Pressure 159/84 H 149/90 H 141/98 H Pulse Oximetry 98 100 97 Oxygen Delivery Method Room Air Room Air Room Air 12/19/22 17:00 12/19/22 17:42 Temperature Pulse Rate 91 H 96 H Respiratory Rate Blood Pressure 143/85 H 146/78 H Pulse Oximetry 97 96 Oxygen Delivery Method Room Air Room Air MDM - Alcohol Lab Data 12/19/22 11:28 12/19/22 11:28 Labs: Lab Results 12/19/22 12/19/22 12/19/22 Range/Units 11:28 11:28 11:28 WBC 9.0 (4.5-11.0) X10^3/uL RBC 4.97 (4.5-5.9) X10^6/uL Hgb 15.5 (13.5-17.5) g/dL Hct 46.2 (41-53) % MCV 92.9 (80-100) fL MCH 31.3 (26-34) PG MCHC 33.7 (30-36) % RDW 13.6 (11.6-14.8) % Plt Count 288 (150-400) X10^3/uL Neut % (Auto) 84.1 H (50-75) % Lymph % (Auto) 7.2 L (25-40) % Hale % (Auto) 8.4 (3-14) % Eos % (Auto) 0.0 L (2-4) % Baso % (Auto) 0.3 (0-2) % Neut # (Auto) 7600 H (8269-8355) /uL Lymph # (Auto) 600 L (2242-2009) /uL Hale # (Auto) 800 (0-900) /uL Eos # (Auto) 0 (0-450) /uL Baso # (Auto) 0 (0-100) /uL PT 12.2 (10.1-12.7) SECONDS INR 1.1 (0.9-1.3) Sodium 137 (137-145) mmol/L Potassium 3.6 (3.4-5.1) mmol/L Chloride 98 (98-107) mmol/L Carbon Dioxide 28 (22-32) mmol/L BUN 19 (9-20) mg/dL Creatinine 0.95 (0.66-1.25) mg/dL Estimated GFR > 60 (>60) mL/min BUN/Creatinine Ratio 20.0 (6-22) Glucose 125 H (70-100) mg/dL Calcium 9.1 (8.4-10.2) mg/dL Total Bilirubin 1.5 H (0.2-1.3) mg/dL AST 43 (17-59) IU/L ALT 43 (<50) IU/L Alkaline Phosphatase 87 (38-126) U/L Total Protein 8.8 H (6.3-8.2) g/dL Albumin 4.9 (3.5-5.0) g/dL Globulin 3.9 (1.7-4.1) g/dL Albumin/Globulin Ratio 1.3 (1.0-2.8) TSH (0.47-4.68) uIU/mL Urine RBC (0-5/HPF) Urine WBC (0-5/HPF) Ur Squamous Epith Cells (0-5/HPF) Ur Renal Epithelial Cell (0-1/HPF) Amorphous Sediment Urine Bacteria (None) Ur Culture Indicated? U Opiates 300ng/mL cut (Negative) Ur Oxycodone Screen (Negative) Urine Methadone Screen (Negative) Ur Barbiturates Screen (Negative) U Tricyclic Antidepress (Negative) Ur Phencyclidine Scrn (Negative) Ur Amphetamines Screen (Negative) U Methamphetamines Scrn (Negative) Ur MDMA Scrn (Ecstasy) (Negative) U Benzodiazepines Scrn (Negative) Urine Cocaine Screen (Negative) U Marijuana (THC) Screen (Negative) Ethyl Alcohol ( - 10) mg/dL SARS-CoV-2 (PCR) 12/19/22 12/19/22 12/19/22 Range/Units 11:28 11:28 12:15 WBC (4.5-11.0) X10^3/uL RBC (4.5-5.9) X10^6/uL Hgb (13.5-17.5) g/dL Hct (41-53) % MCV (80-100) fL MCH (26-34) PG MCHC (30-36) % RDW (11.6-14.8) % Plt Count (150-400) X10^3/uL Neut % (Auto) (50-75) % Lymph % (Auto) (25-40) % Hale % (Auto) (3-14) % Eos % (Auto) (2-4) % Baso % (Auto) (0-2) % Neut # (Auto) (1751-1411) /uL Lymph # (Auto) (9811-2758) /uL Hale # (Auto) (0-900) /uL Eos # (Auto) (0-450) /uL Baso # (Auto) (0-100) /uL PT (10.1-12.7) SECONDS INR (0.9-1.3) Sodium (137-145) mmol/L Potassium (3.4-5.1) mmol/L Chloride (98-107) mmol/L Carbon Dioxide (22-32) mmol/L BUN (9-20) mg/dL Creatinine (0.66-1.25) mg/dL Estimated GFR (>60) mL/min BUN/Creatinine Ratio (6-22) Glucose (70-100) mg/dL Calcium (8.4-10.2) mg/dL Total Bilirubin (0.2-1.3) mg/dL AST (17-59) IU/L ALT (<50) IU/L Alkaline Phosphatase (38-126) U/L Total Protein (6.3-8.2) g/dL Albumin (3.5-5.0) g/dL Globulin (1.7-4.1) g/dL Albumin/Globulin Ratio (1.0-2.8) TSH 1.06 (0.47-4.68) uIU/mL Urine RBC None seen (0-5/HPF) Urine WBC 5-10/hpf H (0-5/HPF) Ur Squamous Epith Cells 1-5 /hpf (0-5/HPF) Ur Renal Epithelial Cell 1-5/hpf H (0-1/HPF) Amorphous Sediment 1+ Urine Bacteria Occasional (0-1) (None) Ur Culture Indicated? Specimen cultured U Opiates 300ng/mL cut (Negative) Ur Oxycodone Screen (Negative) Urine Methadone Screen (Negative) Ur Barbiturates Screen (Negative) U Tricyclic Antidepress (Negative) Ur Phencyclidine Scrn (Negative) Ur Amphetamines Screen (Negative) U Methamphetamines Scrn (Negative) Ur MDMA Scrn (Ecstasy) (Negative) U Benzodiazepines Scrn (Negative) Urine Cocaine Screen (Negative) U Marijuana (THC) Screen (Negative) Ethyl Alcohol < 10 ( - 10) mg/dL SARS-CoV-2 (PCR) 12/19/22 12/19/22 12/19/22 Range/Units 12:15 12:41 12:41 WBC (4.5-11.0) X10^3/uL RBC (4.5-5.9) X10^6/uL Hgb (13.5-17.5) g/dL Hct (41-53) % MCV (80-100) fL MCH (26-34) PG MCHC (30-36) % RDW (11.6-14.8) % Plt Count (150-400) X10^3/uL Neut % (Auto) (50-75) % Lymph % (Auto) (25-40) % Hale % (Auto) (3-14) % Eos % (Auto) (2-4) % Baso % (Auto) (0-2) % Neut # (Auto) (3289-5210) /uL Lymph # (Auto) (8747-5660) /uL Hale # (Auto) (0-900) /uL Eos # (Auto) (0-450) /uL Baso # (Auto) (0-100) /uL PT (10.1-12.7) SECONDS INR (0.9-1.3) Sodium (137-145) mmol/L Potassium (3.4-5.1) mmol/L Chloride (98-107) mmol/L Carbon Dioxide (22-32) mmol/L BUN (9-20) mg/dL Creatinine (0.66-1.25) mg/dL Estimated GFR (>60) mL/min BUN/Creatinine Ratio (6-22) Glucose (70-100) mg/dL Calcium (8.4-10.2) mg/dL Total Bilirubin (0.2-1.3) mg/dL AST (17-59) IU/L ALT (<50) IU/L Alkaline Phosphatase (38-126) U/L Total Protein (6.3-8.2) g/dL Albumin (3.5-5.0) g/dL Globulin (1.7-4.1) g/dL Albumin/Globulin Ratio (1.0-2.8) TSH (0.47-4.68) uIU/mL Urine RBC (0-5/HPF) Urine WBC (0-5/HPF) Ur Squamous Epith Cells (0-5/HPF) Ur Renal Epithelial Cell (0-1/HPF) Amorphous Sediment Urine Bacteria (None) Ur Culture Indicated? U Opiates 300ng/mL cut Negative (Negative) Ur Oxycodone Screen Negative (Negative) Urine Methadone Screen Negative (Negative) Ur Barbiturates Screen Negative (Negative) U Tricyclic Antidepress Negative (Negative) Ur Phencyclidine Scrn Negative (Negative) Ur Amphetamines Screen Negative (Negative) U Methamphetamines Scrn Negative (Negative) Ur MDMA Scrn (Ecstasy) Negative (Negative) U Benzodiazepines Scrn Negative (Negative) Urine Cocaine Screen Negative (Negative) U Marijuana (THC) Screen Positive H (Negative) Ethyl Alcohol ( - 10) mg/dL SARS-CoV-2 (PCR) Cancelled Negative Urine Dip Bedside Urine Glucose Negative Bedside Urine Bilirubin - Negative Bedside Urine Ketone + 15 Urine Specific [place] 1.005 Bedside Urine Occult Blood - Negative Bedside Urine pH 8.5 Bedside Urine Protein + 30 Bedside Urine Urobilinogen - Negative Bedside Urine Nitrite - Negative Bedside Urine Leukocytes - Negative Esterase MDM Narrative Medical decision making narrative: Patient here with girlfriend. Desires detox/stop drinking alcohol. Patient drinks a 5th of the rum/vodka a day. His last alcohol consumption was 2 days ago. Has had nausea vomiting. No seizures no fall no injury no hallucinations. No history of rehabilitation or detox centers. No history of admission for withdrawals. Denies any medical problems. Patient's CIWA score of 11 After history and exam CBC drug screen normal saline CMP alcohol level CIWA protocol ordered MDM CC: Alcohol withdrawal Complicating co-morbidities: Alcohol abuse Data collected from: Patient and girlfriend Medical records reviewed: Seen here in the past for alcohol intoxication Differential considered: Includes but not limited to alcohol withdrawal/DT/alcohol dependence Exam documented above, pertinent findings include: Nausea and vomiting Lab Test results independently reviewed as above. Pertinent findings: White cell count 9 hemoglobin 15 hematocrit 46 platelets 288 Sodium 137 total bilirubin 1.5 , AST 43 ALT 43 alcohol less than 10 Consultations: 5:30 p.m.. Spoke with social service coordinator, Jazmine, she has spoken with patient and family. At this time there is difficulty with insurance coverage, he has insurance however due to billing and not verifying coverage he is unable to be placed into facility. However we were able to contact detox centers that will take patient when bed is available. He is feeling better at this time. It would be appropriate for discharge home. Treatments: Ativan normal saline Zofran Re-evaluations: 557. Patient feels much better. CIWA score of 1. Nausea has resolved. No altered mental status. Mother at bedside. They do desire discharge home as he is feeling much better. I have prescribed Librium and Zofran. Return precautions reviewed with him. Discussion: Appropriate for discharge home. Patient feeling much better after Ativan Zofran and normal saline. Patient has been seen by social work. Mother at bedside. At this time they are comfortable at and agree for discharge home and they will try to call for voluntary detox facilities. Librium and Zofran prescription provided. Resources for detox provided by social work. Not toxic discharge Diagnosis: Alcohol withdrawal Patient is medically cleared for detox/rehabilitation Discharge Plan Departure Patient Disposition: Home Clinical Impression: Alcohol withdrawal syndrome Instructions: DI for Delirium Tremens, DI for Alcohol Use Disorder, DI for Drug or Alcohol Withdrawal Activity Restrictions/Additional Instructions: No driving operating machinery tonight or when taking prescribed medications to help for withdrawals. We have prescribed Librium. As well as Zofran for nausea. Please do call [facility] for phone interview. Currently no beds are available, possibly 1 will be available tomorrow. You also may return here if any question or concerns or worsening symptoms. Phone number [phone]. Prescriptions: New chlordiazepoxide HCl 25 mg capsule 25 mg PO TID PRN (Reason: alcohol withdrawal) Qty: 9 0RF ondansetron 4 mg tablet,disintegrating 4 mg PO Q6H PRN (Reason: nausea and vomiting) Qty: 14 0RF No Action triamcinolone acetonide 0.1 % cream 1 applic topical BID Qty: 30 0RF diphenhydramine HCl [Benadryl] 25 mg capsule 50 mg PO BID PRN cetirizine 10 mg tablet 10 mg PO BID Qty: 60 0RF doxycycline hyclate 100 mg tablet 100 mg PO BID Qty: 20 0RF Referrals: Miscellaneous,Doctor, MD [Primary Care Provider] - Stand Alone Forms: Patient Portal/API
[2022-12-19] MEDS: MAGNESIUM SULFATE 2 GM/50 ML PIGGYBACK IV (12:38)
[2022-12-19] MEDS: THIAMINE 100 MG TABLET PO (12:39)
[2022-12-19 12:45] LABS: TSH w/ Reflex to FT4 1.06 uIU/mL (0.47-4.68)
[2022-12-19 13:00] VITALS: BP 149/90; PULSE 88; RESP 18; O2SAT 100
[2022-12-19 13:13] LABS: COVID19 -Nasal RAPID Negative (Negative)
[2022-12-19 13:17] LABS: Amorphous Sediment Urine 1+; Bacteria Urine Occasional (0-1); Culture Indicated Urine Specimen Cultured; RBC Urine None Seen (0-5/HPF); Renal Epithelial Cells Urine 1-5/HPF (0-1/HPF); Squamous Epithelial Cell Urine 1-5 /HPF (0-5/HPF); WBC Urine 5-10/HPF (0-5/HPF)
[2022-12-19 13:18] LABS: UR Morphine/Opiate cutoff 300 Negative (Negative); Ur Creatinine Normal (Normal); Ur Specific Gravity Normal (Normal); Urine Amphetamines Negative (Negative); Urine Barbiturates Negative (Negative); Urine Benzodiazepines Negative (Negative); Urine Cocaine Negative (Negative); Urine MDMA Negative (Negative); Urine Methadone Negative (Negative); Urine Methamphetamines Negative (Negative); Urine Oxycodone Negative (Negative); Urine Phencyclidine Negative (Negative); Urine Tetrahydrocannabinol Positive (Negative); Urine Tricyclic Antidepressant Negative (Negative); Urine pH Normal (Normal)
[2022-12-19 15:02] VITALS: BP 141/98; PULSE 99; RESP 18; O2SAT 97
[2022-12-19 17:00] VITALS: BP 143/85; PULSE 91; O2SAT 97
[2022-12-19 17:42] VITALS: BP 146/78; PULSE 96; O2SAT 96
--- NOTE | 2022-12-19 17:51 | CM.SWNOTE ---
Addendum entered by Jazmine Tapia 12/20/22 13:34: CHILD DEVELOPMENT TEACHER Assessment Note Continued Patient reports that he resides in an environment where everyone drinks and is desperately seeking detox and to find a new sober living environment as well as inpatient LYLA rehab. It is the opinion of this CHILD DEVELOPMENT TEACHER that patient is appropriate for and will benefit from detox treatment as well as any LYLA recommended services. ROSE Perry Original Note: CHILD DEVELOPMENT TEACHER Note Patient presents to ED today and yesterday seeking detox for THC and ETOH use. Patient endorses his last use was Sunday evening. Patient endorses he usually drinks a 1/5 of hard alcohol a day and lives with heavy drinkers. Patient is present with his mom and girlfriend today. Patient is 27 y/o with pending [employer] insurance, patient has no PCP listed. Per [facility] detox and [facility] they are full and have no current openings. [facility] have a bed tomorrow. Prior to looking into patient's insurance, CHILD DEVELOPMENT TEACHER calls [facility] and it is reported that they have a male detox bed. After feeling better with medication and treatment in the ED today, patient chooses to d/c with mom. CHILD DEVELOPMENT TEACHER provides patient with outpatient LYLA resources and lists of all local detox facilities. ED provider to d/c patient upon medical clearance, Patient to f/u with detox facilities for intake screening to secure bed for tomorrow AM. ROSE Perry
== END 2022-12-19 17:57 | disposition home or self-care (01) ==
PROVIDERS: Emergency Provider Emergency Medicine
DX: F10.139 Alcohol abuse with withdrawal, unspecified (principal); Z20.822 Contact with and (suspected) exposure to COVID-19
CPT/HCPCS: 36415; 80053; 80305; 80320; 81003; 81015; 84443; 85025; 85610; 87086; 87635; 93005; 96361; 96374; 96375; 99284; C9803; J2060; J2405; J3475